=== PATIENT | female | born 1980 | race African-American/Black ===

== ENCOUNTER 2022-06-20 08:08 | Emergency (ER) | payer SELFPAY ==
[2022-06-20] MEDS ORDERED: Dexamethasone 10 MG/ML VIAL ONE (08:40)
== END 2022-06-20 08:50 | disposition home or self-care (01) ==
LOC: CSHERS 08:08
DX: J02.9 Acute pharyngitis, unspecified (principal)
CPT/HCPCS: 99282; J1100